=== PATIENT | female | born 1980 | race Caucasian/White ===

== ENCOUNTER 2021-01-12 14:34 | Emergency (ER) | payer OTHER ==
[~2021-01-12] VITALS: Ht 162.6 cm; Wt 64.0 kg
[2021-01-12] MEDS ORDERED: LEXAPRO5 MG PO (14:43)
== END 2021-01-12 18:00 | disposition home or self-care (01) ==
LOC: ER 14:34
DX: K59.09 Other constipation (principal); R53.81 Other malaise; R10.9 Unspecified abdominal pain

== ENCOUNTER 2022-12-04 13:48 | Emergency (ER) | payer OTHER ==
[~2022-12-04] VITALS: Ht 162.6 cm; Wt 65.8 kg
[~2022-12-04 13:48] MED LIST: LEXAPRO5 MG PO
[2022-12-04] MEDS ORDERED: AVALIDE 300-121 EACH PO (14:36)
== END 2022-12-05 05:22 | disposition home or self-care (01) ==
LOC: ER 13:48
DX: J20.9 Acute bronchitis, unspecified (principal); R06.02 Shortness of breath; J02.8 Acute pharyngitis due to other specified organisms; E87.6 Hypokalemia; E86.0 Dehydration; I10 Essential (primary) hypertension

== ENCOUNTER 2025-02-11 09:00 | Inpatient (IN) | payer OTHER ==
[~2025-02-11] VITALS: Ht 162.6 cm; Wt 59.0 kg
[~2025-02-11 09:00] MED LIST changes: +AMLODIPINE-OLM1 EAC2; +AVALIDE 300-121 EACH PO; +VALSARTAN4 MG/1 ML PO; +WELLBUTRIN XL300 MG PO
[2025-02-11 10:17] VITALS: BP 123/82
[2025-02-11 10:32] LABS: URINE APPEARANCE Clear; URINE BILIRRUBIN Negative (NEGATIVE); URINE BLOOD Negative; URINE COLOR Yellow; URINE GLUCOSE Negative (NEGATIVE); URINE KETONE Negative (NEGATIVE); URINE LEUKOCYTE Negative; URINE NITRATE Negative; URINE PROTEIN Negative (NEGATIVE); URINE UROBILINOGEN 0.2 E.U./dl
[2025-02-11 10:33] LABS: URINE BACTERIA 61.1 uL (0.0-1933); URINE EPITHELIAL CELLS 1.5 uL (0.0-38.8); URINE RBC 5.1 uL (0.0-20.8)
[2025-02-11 10:50] LABS: URINE CAST 0.00 uL (0.0-1.40); URINE WBC 0.6 uL (0.0-23.2)
[2025-02-11 15:46] VITALS: BP 117/72
[2025-02-17] MEDS ORDERED: METRONIDAZOLE/SODIUM CHLORIDE 500 MG/100 ML PIGGYBACK IV ONE (07:06)
[2025-02-17] MEDS ORDERED: CEFAZOLIN SODIUM 1,000 MG VIAL ONE (07:07)
[2025-02-17] MEDS ORDERED: POVIDONE-IODINE 118 ML BOTT TOP ONE (07:23)
[2025-02-17] MEDS ORDERED: SUGAMMADEX SODIUM 200 MG/2 ML VIAL IV ONE (11:15)
[2025-02-17] MEDS ORDERED: KETOROLAC TROMETHAMINE 30 MG VIAL IV SCH (12:23)
[2025-02-17] MEDS ORDERED: ACETAMINOPHEN 500 MG GEL..CAP PO SCH (12:23)
[2025-02-17] MEDS ORDERED: ONDANSETRON HCL 2 MG/ML VIAL IV PRN (12:30)
[2025-02-17] MEDS ORDERED: RINGERS SOLUTION,LACTATED 1,000 ML IV SCH (12:30)
[2025-02-17] MEDS ORDERED: GABAPENTIN 300 MG CAPSULE PO SCH (13:00)
[2025-02-17 15:25] VITALS: BP 117/72
[2025-02-18 02:01] VITALS: BP 104/62
[2025-02-18 06:19] LABS: BASO % 0.4 % (0.1-1.2); EOS # 0.02 (0.04-0.54); EOS % 0.2 % (0.7-7.0); LYMPH # 2.66 (1.18-3.74); LYMPH % 28.3 % (19.3-53.1); MEAN PLATELET VOLUME 10.60 fl (9.4-12.4); MONO # 0.47 (0.24-0.82); MONO % 5.0 % (4.7-12.5); NEUT # 6.19 (1.56-6.13); NEUT % 65.9 % (34.0-71.1); RED CELL DISTRIBUTION WIDTH 11.7 % (11.6-14.4)
[2025-02-18 07:51] VITALS: BP 106/69
== END 2025-02-18 09:44 | disposition home or self-care (01) | DRG 742 ==
LOC: O/R 02-17 06:00 → OB/GYN 02-17 06:00
PROVIDERS: ADMIT Student in an Organized Health Care Education/Training Program; ATTEND Student in an Organized Health Care Education/Training Program
PROC: 0UT74ZZ Resection of Bilateral Fallopian Tubes, Percutaneous Endoscopic Approach (ICD-10-PCS; 2025-02-17)
PROC: 0UQF4ZZ Repair Cul-de-sac, Percutaneous Endoscopic Approach (ICD-10-PCS; 2025-02-17)
PROC: 8E0W4CZ Robotic Assisted Procedure of Trunk Region, Percutaneous Endoscopic Approach (ICD-10-PCS; 2025-02-17)
PROC: 0TJB8ZZ Inspection of Bladder, Via Natural or Artificial Opening Endoscopic (ICD-10-PCS; 2025-02-17)
PROC: 0UQMXZZ Repair Vulva, External Approach (ICD-10-PCS; 2025-02-17)
PROC: 0UT94ZZ Resection of Uterus, Percutaneous Endoscopic Approach (ICD-10-PCS; principal; 2025-02-17 07:00)
DX: D25.9 Leiomyoma of uterus, unspecified (principal); N99.71 Accidental puncture and laceration of a genitourinary system organ or structure during a genitourinary system procedure; Z90.710 Acquired absence of both cervix and uterus; R10.20 Pelvic and perineal pain unspecified side; N81.4 Uterovaginal prolapse, unspecified